=== PATIENT | female | born 1975 | race Hispanic/Latino ===

== ENCOUNTER 2022-05-02 11:46 | Emergency (ER) | payer SELFPAY ==
[2022-05-02] MEDS ORDERED: FAMOTIDINE 20 MG/2 ML VIAL IV ONE (12:32)
[2022-05-02] MEDS ORDERED: ONDANSETRON 4 MG/2 ML VIAL ONE (12:32)
[2022-05-02] MEDS ORDERED: MORPHINE 2 MG/ML SYR ONE (12:32)
--- NOTE | 2022-05-02 12:37 | RAD REPORT ---
EXAM DESCRIPTION: RAD - Chest Single View - 05/02/2022 12:29 pm CLINICAL HISTORY: CHEST PAIN Chest pain. COMPARISON: CHEST SINGLE VIEW dated 04/17/2014 FINDINGS: Portable technique limits examination quality. The lungs are grossly clear. The heart is normal in size. No displaced fractures. IMPRESSION: No acute intrathoracic process suspected.
[2022-05-02 12:44] LABS: Absolute Lymphocytes (CBC) 1.3 K/uL (0.7-4.9); Hematocrit 32.9 % (36.0-45.0); Lymphocytes % 18.2 % (15.3-44.8); MCV 83.5 fL (80-100); MPV 8.5 fL (7.6-11.3); RBC Red Blood Cell Count 3.94 M/uL (3.86-4.86)
[2022-05-02 12:49] LABS: Protime INR 1.05
[2022-05-02 13:03] LABS: ALT/SGPT 24 U/L (13-56); AST/SGOT 36 U/L (15-37); Albumin 3.3 g/dL (3.4-5.0); Alkaline Phosphatase 58 U/L (45-117); BUN Blood Urea Nitrogen 13 mg/dL (7-18); Bicarbonate 28 mmol/L (21-32); Bilirubin Direct < 0.1 mg/dL (0-0.2); Bilirubin Total 0.3 mg/dL (0.2-1.0); Glomerular Filtration Rate 79 ml/min (=/>90); Glucose Level 97 mg/dL (74-106); Magnesium 2.1 mg/dL (1.6-2.4); NT PRO-BNP 77 pg/mL (<125); Potassium 3.8 mmol/L (3.5-5.1); Protein, Total 6.9 g/dL (6.4-8.2); Sodium Level 138 mmol/L (136-145); Troponin High Sensitivity 3.5 pg/mL (<58.9)
--- NOTE | 2022-05-02 14:58 | RAD REPORT ---
EXAM DESCRIPTION: CT - Chest For Pe Angio - 05/02/2022 2:47 pm CLINICAL HISTORY: Chest pain. chest pain, elevated d-dimer COMPARISON: No comparisons TECHNIQUE: CT angiogram of the pulmonary arteries was performed with MIP. All CT scans are performed using dose optimization technique as appropriate and may include automated exposure control or mA/KV adjustment according to patient size. FINDINGS: No evidence of pulmonary thromboembolism. No acute aortic finding demonstrated. The lungs are clear. No significant pericardial or pleural fluid. No concerning bony finding. Postsurgical changes about the stomach. IMPRESSION: No evidence of pulmonary thromboembolism. No acute lung findings.
[2022-05-02 19:59] VITALS: BP 131/84; O2SAT 96
--- NOTE | 2022-05-03 13:04 | EKG ---
Test Date: 2022-05-02 Test Time: 10:59:00 Senior Hris Analyst: SUSAN MEASUREMENT RESULTS: Intervals: Rate: 77 VT: 168 QRSD: 88 QT: 374 QTc: 423 Philip: P: 55 VT: 168 QRS: -10 T: 47 INTERPRETIVE STATEMENTS: Normal sinus rhythm Normal ECG Compared to ECG 09/08/2020 13:22:46 Sinus bradycardia no longer present Electronically Signed On 05-03-22 13:02:31 CDT by Jovany Kwok
--- NOTE | 2022-05-14 17:07 | EDPHYS ---
Physician Documentation [facility] Name: Digna Marrero Age: 47 yrs Sex: Female : 1975 Arrival Date: 05/02/2022 Time: 11:59 Bed 17 Private MD: ED Physician Milan Ordonez HPI: 05/02 12:03 This 47 yrs old Female presents to ER via EMS with complaints of Chest Pain > jmm 30 y/o. 12:03 The patient or guardian reports chest pain that is located primarily in the substernal jmm area. Onset: gradually, 1 hour(s) ago. The pain radiates to. Is a 47-year-old female with history of hypertension the presents emerged part with complaints of epigastric pain which radiates into her chest. Patient states that last week she had more of a milder form but approximate hour ago pain intensified to the extent she wanted to get this checked out. Denies any history of cardiac disease. Does take lisinopril for blood pressure. Patient states she also took up smoking again.. 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 - Social history:: Smoking status: Patient reports the use of cigarette tobacco products, smokes one-half pack cigarettes per day. ROS: 12:03 Constitutional: Negative for fever, chills, and weight loss. jmm 12:03 Cardiovascular: Positive for chest pain. 12:03 Abdomen/GI: Positive for abdominal pain. 12:03 All other systems are negative. Exam: 12:03 Constitutional: This is a well developed, well nourished patient who is awake, alert, jmm and in no acute distress. Head/Face: atraumatic. Eyes: EOMI, no conjunctival erythema appreciated ENT: Moist Mucus Membranes Neck: Trachea midline, Supple Chest/axilla: Normal chest wall appearance and motion. Cardiovascular: Regular rate and rhythm. No edema appreciated Respiratory: Normal respirations, no respiratory distress appreciated 12:03 Back: Normal ROM Skin: General appearance color normal MS/ Extremity: Moves all extremities, no obvious deformities appreciated, no edema noted to the lower extremities Neuro: Awake and alert Psych: Behavior is normal, Mood is normal, Patient is cooperative and pleasant 12:03 Abdomen/GI: Inspection: abdomen appears normal, Palpation: soft, nontender, Indicators: Valenzuela's sign is negative. Vital Signs: 11:52 BP 153 / 82; Pulse 79; Resp 18; Temp 98.5(O); Pulse Ox 98% on R/A; Weight 113.4 kg; db Height 5 ft. 10 in. ; Pain 4/10; 11:57 BP 131 / 84; Pulse 78; Resp 16; Pulse Ox 96% on R/A; db 12:30 BP 154 / 76; Pulse 71; Resp 18; Pulse Ox 100% on R/A; db 13:30 BP 168 / 67; Pulse 58; Resp 16; Pulse Ox 100% on R/A; db 14:00 BP 176 / 97; Pulse 56; Resp 18; Pulse Ox 96% on R/A; db 15:30 BP 145 / 95; Pulse 63; Resp 16; Pulse Ox 99% on R/A; db 16:30 BP 161 / 85; Pulse 72; Resp 16; Pulse Ox 100% on R/A; db 17:00 BP 126 / 89; Pulse 70; Resp 16; Pulse Ox 100% on R/A; db 11:52 Body Mass Index 35.87 (113.40 kg, 177.8 cm) db 11:52 Pain Scale: Adult db MDM: 12:03 Patient medically screened. [facility] 19:53 Differential diagnosis: acute myocardial infarction, anxiety, chest wall pain, jm pulmonary embolus, thoracic aortic disection, unstable angina. DMITRI Risk Score: 1 - Three or more CAD risk factors, [HTN], [Active Smoker]. Data reviewed: vital signs, nurses notes, lab test result(s), EKG, radiologic studies, plain films. I considered the following discharge prescriptions or medication management in the emergency department Medications were administered in the Emergency Department. See MAR. Independent interpretation of the following test(s) in the Emergency Department X-Ray: My interpretation is No infiltrate appreciated. Counseling: I had a detailed discussion with the patient and/or guardian regarding: the historical points, exam findings, and any diagnostic results supporting the discharge/admit diagnosis, lab results, radiology results, the need for outpatient follow up, to return to the emergency department if symptoms worsen or persist or if there are any questions or concerns that arise at home. 05/02 12:11 Order name: Basic Metabolic Panel; Complete Time: 13:05 [facility] 05/02 12:11 Order name: CBC with Diff; Complete Time: 12:52 [facility] 05/02 12:11 Order name: D-Dimer; Complete Time: 12:59 [facility] 05/02 12:11 Order name: LFT's; Complete Time: 13:05 [facility] 05/02 12:11 Order name: Magnesium; Complete Time: 13:05 [facility] 05/02 12:11 Order name: NT PRO-BNP; Complete Time: 13:05 [facility] 05/02 12:11 Order name: PT-INR; Complete Time: 12:59 [facility] 05/02 12:11 Order name: Troponin HS; Complete Time: 13:05 [facility] 05/02 15:58 Order name: Troponin High Sensitivity; Complete Time: 16:35 [facility] 05/02 12:11 Order name: XRAY Chest (1 view); Complete Time: 12:38 [facility] 05/02 13:32 Order name: CT Chest For PE Angio; Complete Time: 15:03 [facility] 05/02 12:11 Order name: EKG; Complete Time: 12:12 [facility] 05/02 12:11 Order name: Cardiac monitoring; Complete Time: 12:12 [facility] 05/02 12:11 Order name: EKG - Nurse/Tech; Complete Time: 12:12 [facility] 05/02 12:11 Order name: IV Saline Lock; Complete Time: 12:13 [facility] 05/02 12:11 Order name: Labs collected and sent; Complete Time: 12:13 [facility] 05/02 12:11 Order name: O2 Per Protocol; Complete Time: 12:13 [facility] 05/02 12:11 Order name: O2 Sat Monitoring; Complete Time: 12:13 [facility] Administered Medications: 12:37 Drug: morphine IVP or IV 2 mg Route: IVP; Infused Over: 4 mins; Site: left antecubital; db 14:32 Follow up: Response: No adverse reaction db 12:37 Drug: Ondansetron IVP 4 mg Route: IVP; Site: left antecubital; db 14:32 Follow up: Response: No adverse reaction db 12:38 Drug: Famotidine IVP 20 mg Route: IVP; Site: left antecubital; db 14:32 Follow up: Response: No adverse reaction db Disposition Summary: 05/02/22 16:56 Discharge Ordered Location: Home [facility] Condition: Stable jmm Diagnosis - Chest pain, unspecified jmm Followup: [facility] - With: Jovany Kwok MD - When: 2 - 3 days - Reason: Recheck today's complaints, Continuance of care, Re-evaluation by your physician Discharge Instructions: - Discharge Summary Sheet jmm - Nonspecific Chest Pain, Adult jm Forms: - Medication Reconciliation Form [facility] - Thank You Letter [facility] - Antibiotic Education [facility] - Prescription Opioid Use [facility] - Work release form bc6 Prescriptions: - Pepcid 20 mg Oral Tablet - take 1 tablet by ORAL route every 12 hours for 10 days; 20 tablet; Refills: 0, [facility] Product Selection Permitted Addendum: 05/07/2022 08:02 Co-signature as Attending Physician, Milan Ordonez MD I reviewed the patient's care r t provided by the Advanced Practice Provider and agree with the diagnosis and treatment plan. Signatures: Dispatcher [employer] Sergo Grayson PA PA jmm Benton, Danielle, RN RN Milan Cortez MD MD rt
--- NOTE | 2022-05-14 17:07 | ER ---
Nurse's Notes [facility] Name: Digna Marrero Age: 47 yrs Sex: Female : 1975 Arrival Date: 05/02/2022 Time: 11:59 Bed 17 Private MD: Diagnosis: Chest pain, unspecified Presentation: 05/02 11:52 Chief complaint: EMS states: patient states has CP x 30 min. worse now. patient took 3 db tums . EMS gave 4 324mg ASA. Coronavirus screen: Vaccine status: Client denies travel out of the [place] in the last 14 days. At this time, the client does not indicate any symptoms associated with coronavirus-19. Ebola Screen: Patient negative for fever greater than or equal to 101.5 degrees Fahrenheit, and additional compatible Ebola Virus Disease symptoms Patient denies exposure to infectious person. Patient denies travel to an Ebola-affected area in the 21 days before illness onset. No symptoms or risks identified at this time. Initial Sepsis Screen: Does the patient meet any 2 criteria? No. Patient's initial sepsis screen is negative. Does the patient have a suspected source of infection? No. Patient's initial sepsis screen is negative. Risk Assessment: Do you want to hurt yourself or someone else? Patient reports no desire to harm self or others. Onset of symptoms was May 02, 2022. Care prior to arrival: Medication(s) given: ASA, 81 mg, x 4, Normal saline infusion, 500 mL, IV initiated. 20 GA, in the left antecubital area. 11:52 Method Of Arrival: EMS: [facility] db 11:52 Acuity: KRISTIN 2 db Triage Assessment: 14:06 General: Appears in no apparent distress. comfortable, Behavior is calm, cooperative. db Pain: Denies pain. 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 - Social history:: Smoking status: Patient reports the use of cigarette tobacco products, smokes one-half pack cigarettes per day. Screenin:10 [facility] ED Fall Risk Assessment (Adult) History of falling in the last 3 months, db including since admission No falls in past 3 months (0 pts) Confusion or Disorientation No (0 pts) Intoxicated or Sedated No (0 pts) Impaired Gait No (0 pts) Mobility Assist Device Used No (0 pt) Altered Elimination No (0 pt) Score/Fall Risk Level 0 - 2 = Low Risk Oriented to surroundings, Maintained a safe environment. Abuse screen: Denies threats or abuse. Denies injuries from another. Nutritional screening: No deficits noted. Tuberculosis screening: No symptoms or risk factors identified. Assessment: 12:10 Reassessment: Patient appears in no apparent distress at this time. Patient and/or db family updated on plan of care and expected duration. Pain level reassessed. Patient is alert, oriented x 3, equal unlabored respirations, skin warm/dry/pink. Chest pain x 30 min took 3 tums. 12:39 Reassessment: Patient appears in no apparent distress at this time. Patient and/or db family updated on plan of care and expected duration. Pain level reassessed. Patient is alert, oriented x 3, equal unlabored respirations, skin warm/dry/pink. Pain: Complains of pain in chest Pain does not radiate. Pain began suddenly. Cardiovascular: Reports chest pain, Capillary refill < 3 seconds. 14:07 Reassessment: Patient appears in no apparent distress at this time. Patient and/or db family updated on plan of care and expected duration. Pain level reassessed. Patient is alert, oriented x 3, equal unlabored respirations, skin warm/dry/pink. General: Appears in no apparent distress. comfortable, Behavior is calm, cooperative. 15:41 Reassessment: Patient appears in no apparent distress at this time. Patient and/or db family updated on plan of care and expected duration. Pain level reassessed. Patient is alert, oriented x 3, equal unlabored respirations, skin warm/dry/pink. 16:09 Reassessment: Patient appears in no apparent distress at this time. Patient and/or db family updated on plan of care and expected duration. Pain level reassessed. Patient is alert, oriented x 3, equal unlabored respirations, skin warm/dry/pink. 17:24 Reassessment: Patient appears in no apparent distress at this time. Patient and/or db family updated on plan of care and expected duration. Pain level reassessed. Patient is alert, oriented x 3, equal unlabored respirations, skin warm/dry/pink. Patient states feeling better. Patient states symptoms have improved. Vital Signs: 11:52 BP 153 / 82; Pulse 79; Resp 18; Temp 98.5(O); Pulse Ox 98% on R/A; Weight 113.4 kg; db Height 5 ft. 10 in. ; Pain 4/10; 11:57 BP 131 / 84; Pulse 78; Resp 16; Pulse Ox 96% on R/A; db 12:30 BP 154 / 76; Pulse 71; Resp 18; Pulse Ox 100% on R/A; db 13:30 BP 168 / 67; Pulse 58; Resp 16; Pulse Ox 100% on R/A; db 14:00 BP 176 / 97; Pulse 56; Resp 18; Pulse Ox 96% on R/A; db 15:30 BP 145 / 95; Pulse 63; Resp 16; Pulse Ox 99% on R/A; db 16:30 BP 161 / 85; Pulse 72; Resp 16; Pulse Ox 100% on R/A; db 17:00 BP 126 / 89; Pulse 70; Resp 16; Pulse Ox 100% on R/A; db 11:52 Body Mass Index 35.87 (113.40 kg, 177.8 cm) db 11:52 Pain Scale: Adult db ED Course: 11:59 Patient arrived in ED. db 12:03 Sergo Banda PA is PHCP. jmm 12:03 Milan Ordonez MD is Attending Physician. jmm 12:08 Triage completed. db 12:09 Arm band placed on right wrist. db 12:09 Maintain EMS IV. Dressing intact. Good blood return noted. Site clean \T\ dry. Gauge \T\ db site: 20 G LAC. 12:13 Aleta Roper, RN is Primary Nurse. db 12:30 XRAY Chest (1 view) In Process Unspecified. EDMS 12:39 Patient has correct armband on for positive identification. Bed in low position. Side db rails up X 1. Client placed on continuous cardiac and pulse oximetry monitoring. NIBP monitoring applied. 12:39 Patient maintains SpO2 saturation greater than 95% on room air. db 14:48 CT Chest For PE Angio In Process Unspecified. EDMS 16:08 Troponin High Sensitivity Sent. bc6 16:55 Jovany Kwok MD is Referral Physician. jmm 17:23 No provider procedures requiring assistance completed. IV discontinued, intact, db bleeding controlled, No redness/swelling at site. Administered Medications: 12:37 Drug: morphine IVP or IV 2 mg Route: IVP; Infused Over: 4 mins; Site: left antecubital; db 14:32 Follow up: Response: No adverse reaction db 12:37 Drug: Ondansetron IVP 4 mg Route: IVP; Site: left antecubital; db 14:32 Follow up: Response: No adverse reaction db 12:38 Drug: Famotidine IVP 20 mg Route: IVP; Site: left antecubital; db 14:32 Follow up: Response: No adverse reaction db Medication: 16:30 VIS not applicable for this client. db Outcome: 16:56 Discharge ordered by MD. hung 17:24 Discharged to home ambulatory, with family. db 17:24 Condition: stable 17:24 Discharge instructions given to patient, Instructed on discharge instructions, follow up and referral plans. Prescriptions given X 1. 17:24 Patient left the ED. db Signatures: Dispatcher [employer] EDMS Sergo Banda PA PA jmm Benton, Danielle, RN RN Krysta Dave bc6
== END 2022-05-02 17:24 | disposition home or self-care (01) ==
LOC: ER 11:46 → SUPCPDRO 11:46 → ER 17:24
DX: R07.89 Other chest pain (principal); F17.210 Nicotine dependence, cigarettes, uncomplicated
CPT/HCPCS: 36415; 71045; 71275; 80048; 80076; 83735; 83880; 84484; 85025; 85379; 85610; 93005; 96374; 96375; 99284; J2270; J2405; Q9967